=== PATIENT | female | born 1980 | race Two or more races ===

== ENCOUNTER 2018-10-05 16:40 | Outpatient (CLI) | payer OTHER | END 2018-10-05 17:08 | disposition home or self-care (01) | LOC: LAB 16:40 | DX: D68.8 Other specified coagulation defects (principal); Z01.812 Encounter for preprocedural laboratory examination ==

== ENCOUNTER 2018-10-11 15:01 | Outpatient (CLI) | payer OTHER | END 2018-10-11 15:05 | disposition home or self-care (01) | LOC: RAD 15:01 | DX: Z01.811 Encounter for preprocedural respiratory examination (principal) ==